=== PATIENT | female | born 1970 | race Caucasian/White ===

== ENCOUNTER 2018-12-03 01:10 | Emergency (ER) | payer OTHER ==
[~2018-12-03] VITALS: Ht 175.3 cm; Wt 104.5 kg
[~2018-12-03 01:10] MED LIST: AMOXICILLIN500 MG OR; BENTYL10 MG PO; IMITREX25 MG PO
[2018-12-03] MEDS ORDERED: CORTISPORIN OTI10 ML AD (01:44)
[2018-12-03] MEDS ORDERED: AMOXICILLIN500 MG PO (01:44)
[2018-12-03 01:58] VITALS: BP 137/72
== END 2018-12-03 01:58 | disposition home or self-care (01) | DRG 156 ==
LOC: ED 01:10
PROC: 09C3XZZ Extirpation of Matter from Right External Auditory Canal, External Approach (ICD-10-PCS; principal; 2018-12-03)
DX: T16.1XXA Foreign body in right ear, initial encounter (principal); X58.XXXA Exposure to other specified factors, initial encounter

== ENCOUNTER 2019-09-07 | Emergency (ER) | payer OTHER ==
[~2019-09-07] MED LIST changes: +AMOXICILLIN500 MG PO; +CORTISPORIN OTI10 ML AD
[2019-09-07] MEDS ORDERED: CEPHALEXIN500 M1 PO (18:54)
[2019-09-07] MEDS ORDERED: TOPIRAMATE25 MG PO (19:21)
[2019-09-07] MEDS ORDERED: FOLIC ACID1 M1 PO (19:21)
[2019-09-07] MEDS ORDERED: VITAMIN D50000 UNIT PO (19:22)
[2019-09-07 21:21] LABS: ANION GAP 12 (6-22 (CALC)); BUN 11 mg/dL (7-17); BUN/CREATININE RATIO 20 (12-20 (CALC)); CHLORIDE 109 mmol/l (95-108); CREATININE 0.6 mg/dL (0.5-1.0); GFR > 60 ML/MIN (>=60 (CALC)); GFR FOR AFR.AMER. > 60 ML/MIN (>=60 (CALC)); POTASSIUM 4.2 mmol/l (3.5-5.1); SODIUM 138 mmol/l (137-146)
[2019-09-07 21:22] LABS: CARBON DIOXIDE 21 mmol/l (22-30)
[2019-09-07] MEDS ORDERED: MOTRIN400 MG PO (22:38)
== END 2019-09-07 22:45 | disposition home or self-care (01) | DRG 605 ==
PROVIDERS: Emergency Medicine
PROC: 0HQNXZZ Repair Left Foot Skin, External Approach (ICD-10-PCS; principal; 2019-09-07)
PROC: 0HQMXZZ Repair Right Foot Skin, External Approach (ICD-10-PCS; 2019-09-07)
DX: S91.312A Laceration without foreign body, left foot, initial encounter (principal); S91.311A Laceration without foreign body, right foot, initial encounter; M54.5 Low back pain; S80.11XA Contusion of right lower leg, initial encounter; V43.52XA Car driver injured in collision with other type car in traffic accident, initial encounter
CPT/HCPCS: Q9967